=== PATIENT | female | born 1990 | race Caucasian/White ===

== ENCOUNTER 2017-07-30 14:40 | Emergency (ER) | payer SELFPAY ==
[~2017-07-30] VITALS: Ht 160 cm; Wt 86.4 kg
[2017-07-30 14:42] VITALS: BP 112/76
[2017-07-30] MEDS ORDERED: IBUPROFEN 400 MG TABLET PO ONE (15:15)
== END 2017-07-30 15:39 | disposition home or self-care (01) ==
LOC: EMS 14:42
DX: S13.9XXA Sprain of joints and ligaments of unspecified parts of neck, initial encounter (principal); M54.9 Dorsalgia, unspecified; V43.52XA Car driver injured in collision with other type car in traffic accident, initial encounter; Y93.89 Activity, other specified; Y92.488 Other paved roadways as the place of occurrence of the external cause; Y99.8 Other external cause status
CPT/HCPCS: 99282